=== PATIENT | female | born 1975 | race Caucasian/White ===

== ENCOUNTER → 2020-05-10 | Outpatient (CLI) | payer BC ==
[2004-07-14 06:25] VITALS: PULSE 108
[~2020-05-10] MED LIST: FERROUS SU325 MG/TAB PO; LEVOTHYROXIN0.075 MG PO; PHENERGAN 25 TA25 MG PO; ZOLOFT 100MG100 MG PO
== END ==
LOC: MC.RAD 10:43
DX: Z12.31 Encounter for screening mammogram for malignant neoplasm of breast (principal)

== ENCOUNTER → 2023-03-13 | Outpatient (CLI) | payer BC | LOC: MC.RAD 13:49 | DX: Z12.31 Encounter for screening mammogram for malignant neoplasm of breast (principal) ==